=== PATIENT | male | born 1955 | race Caucasian/White ===

== ENCOUNTER 2024-01-14 08:04 | Outpatient (RCR) | payer MEDICARE, SELFPAY | END 2024-04-21 09:56 | disposition home or self-care (01) | LOC: HO.WCC 08:04 | PROVIDERS: PCP Physician Assistant Medical; Visit Provider Physician Assistant | DX: E11.622 Type 2 diabetes mellitus with other skin ulcer (principal); L97.222 Non-pressure chronic ulcer of left calf with fat layer exposed; I87.2 Venous insufficiency (chronic) (peripheral); I25.10 Atherosclerotic heart disease of native coronary artery without angina pectoris; I10 Essential (primary) hypertension; Z86.73 Personal history of transient ischemic attack (TIA), and cerebral infarction without residual deficits; Z79.899 Other long term (current) drug therapy | CPT/HCPCS: 11042; 87070; 87077; 87186; 87205; 88304; 88305; 99212 ==